=== PATIENT | male | born 1950 | race Caucasian/White ===

== ENCOUNTER 2020-10-22 12:42 | Emergency (ER) | payer OTHER ==
[~2020-10-22] VITALS: Ht 167.6 cm; Wt 72.6 kg
[2020-10-22] MEDS ORDERED: TAMS0.4C PO (13:11)
[2020-10-22] MEDS ORDERED: MUPIROCIN22 GM TOP (14:29)
[2020-10-22] MEDS ORDERED: CIPRO500 MG PO (14:29)
== END 2020-10-22 14:47 | disposition home or self-care (01) ==
LOC: ER 12:42
DX: S50.872A Other superficial bite of left forearm, initial encounter (principal); W54.0XXA Bitten by dog, initial encounter; Y93.89 Activity, other specified; Y92.89 Other specified places as the place of occurrence of the external cause; Y99.8 Other external cause status